=== PATIENT | female | born 1945 | race Caucasian/White ===

== ENCOUNTER 2016-08-31 06:25 | Observation (INO) | payer BC, OTHER ==
[~2016-08-31 06:25] MED LIST: ACCUNEB INH; ACIPHEX PO; ACTONEL150 MG PO; ADVAIR250 INH; AFRIN15 NAS; ASAB PO; BREO ELLIPTA INH; CALTRAT600 PO; CENTRUM PO; DETROL2 PO; DETROLLA2 PO; DILT-XR120 MG PO; ESKALITH PO; FISH-EPA1000 MG PO; FOSAMAX70 MG PO; GUAIFENESI4 PO; KLOR-CON 1010 MEQ PO; LEXAPRO10 PO; MAX25 PO; MONODOX100 MG PO; MUCINEX DM PO; MUCINEX DM1 TAB OR; MUCINEX DM1 TAB PO; MUCINEX600 MG PO; MULTIPLE VIT PO; NEUR100 PO; OS500+D PO; OSTEO BI-FLEX1 EACH PO; PCET PO; PRAVAC PO; PROAIR HFA INH; PROVENTSOL INH; ROBITUSS11 PO; ROBITUSS23 PO; SPIRIVA INH; TRAZ100 PO; TUMERIC PO; TUSSIN COU15 MG/5 ML PO; TUSSINEX; VENTOLIN HFA INH; VITA PULSE; ZITHROMAX500 MG PO; ZOCOR5 MG PO; ZOFRAN4 PO; ZYRTEC ALLGY10 MG PO; ZYRTEC-D ALG PO
[2016-08-31 07:12] LABS: BASOPHILS 0.2 %; BASOPHILS ABSOLUTE 0.03 10/3/uL (0.0-0.16); EOSINOPHILS 2.3 %; EOSINOPHILS ABSOLUTE 0.28 10/3/uL (0.0-0.53); HEMATOCRIT 46.1 % (36.0-48.0); HEMOGLOBIN 15.2 g/dL (12.0-16.0); IMMATURE GRANULOCYTES 0.4 %; IMMATURE GRANULOCYTES ABSOLUTE 0.05 10/3/uL (0.0-0.11); LYMPHOCYTES 26.3 %; LYMPHOCYTES ABSOLUTE 3.16 10/3/uL (0.67-4.30); MANUAL DIFF NO %; MEAN CORPUSCULAR HEMOGLOB 31.3 pg (26.0-34.0); MEAN CORPUSCULAR VOLUME 94.9 fL (80-100); MEAN PLATELET VOLUME 9.3 fL (9.2-13.0); MONOCYTES 7.9 %; MONOCYTES ABSOLUTE 0.95 10/3/uL (0.21-1.20); NEUTROPHILS 62.9 %; NEUTROPHILS ABSOLUTE 7.55 10/3/uL (2.02-8.40); PLATELET COUNT 231 10/3/uL (150-400); RBC DISTRIBUTION WIDTH 12.8 % (12.0-16.0); RED CELL COUNT 4.86 10/6/uL (4.0-5.6)
[2016-08-31 07:17] LABS: INTERNATIONAL NORMAL RATI 0.9 UNITS (-); PROTIME (NOT ORD) 12.1 SEC (12.0-14.5)
[2016-08-31 07:18] LABS: PARTIAL THROMBO TIME 28.7 SEC (22.5-37.2)
[2016-08-31 08:39] LABS: MAX AMP (AA) 66.8 MM (55-74); TEG - ANGLE 74.1 DEG (53-72); TEG - COAGULATION INDEX 3.3 (-3 TO 3); TEG - MAXIMUM AMPLITUDE 70.1 MM (50-70); TEG ASPIRIN (AA) 6.9 % INHIB (<40)
== END 2016-09-01 08:50 | disposition home or self-care (01) ==
LOC: SSU1 06:25 → RADHOLD 06:35 → SSU1 16:53
PROVIDERS: Internal Medicine Pulmonary Disease; Radiology Vascular & Interventional Radiology
PROC: 0BBC3ZX Excision of Right Upper Lung Lobe, Percutaneous Approach, Diagnostic (ICD-10-PCS; principal; 2016-08-31)
DX: J98.4 Other disorders of lung (principal); J96.10 Chronic respiratory failure, unspecified whether with hypoxia or hypercapnia; J44.9 Chronic obstructive pulmonary disease, unspecified; E11.9 Type 2 diabetes mellitus without complications; F17.210 Nicotine dependence, cigarettes, uncomplicated; Z98.890 Other specified postprocedural states; Z90.710 Acquired absence of both cervix and uterus; F32.9 Major depressive disorder, single episode, unspecified; E78.00 Pure hypercholesterolemia, unspecified; Z96.641 Presence of right artificial hip joint; Z85.3 Personal history of malignant neoplasm of breast; Z90.49 Acquired absence of other specified parts of digestive tract
CPT/HCPCS: 32405; 71010; 77012; 82962; 85025; 85347; 85384; 85576; 85576-59; 85610; 85730; 88305; 88333; 88341; 88342; A9270-GY; G0378; J2250; J3010